=== PATIENT | female | born 1965 | race Caucasian/White ===

== ENCOUNTER 2016-10-24 10:21 | Day surgery (SDC) | payer OTHER ==
[~2016-10-24] VITALS: Ht 180.3 cm; Wt 96.4 kg
[2016-10-24] VITALS (8 sets, daily range): BP systolic 126–141; BP diastolic 70–96; PULSE 70–82; RESP 12–22; O2SAT 94–100
[~2016-10-24 10:21] MED LIST: DIPH25CA6 PO; IBUP200C11 PO; Lactated Ringer's 1,000 ML IV ONE
[2016-10-24] MEDS ORDERED: EPHEDrine/NS 5 mg/mL 5 mL Syringe ONE (10:22)
[2016-10-24] MEDS ORDERED: fentaNYL-PF 50 mCg/mL 2 mL Inj ONE (10:22)
[2016-10-24] MEDS ORDERED: Dexamethasone 4 mg/mL Inj ONE (10:22)
[2016-10-24] MEDS ORDERED: Phenylephrine/NS 100 mCg/mL 10 mL Syringe IVPUSH ONE (10:22)
[2016-10-24] MEDS ORDERED: Rocuronium 10 mg/mL 5 mL Inj ONE (10:22)
[2016-10-24] MEDS ORDERED: MetoCLOpramide 5 mg/mL 2 mL Inj ONE (10:22)
[2016-10-24] MEDS ORDERED: Glycopyrrolate 0.2 MG/ML 1mL Inj ONE (10:22)
[2016-10-24] MEDS ORDERED: Neostigmine 1 mg/mL 10 mL Inj ONE (10:22)
[2016-10-24] MEDS ORDERED: Ondansetron 2 mg/mL 2 mL Inj ONE (10:22)
[2016-10-24] MEDS ORDERED: Propofol 10 mg/mL 20 mL Inj ONE (10:22)
[2016-10-24] MEDS ORDERED: CeFAZolin 2 Gm/50 mL D5W Duplex Bag IV ONE (10:34)
[2016-10-24] MEDS ORDERED: Lactated Ringer's 500 ML IV PRN (11:57)
[2016-10-24] MEDS ORDERED: Lactated Ringer's 1,000 ML IV SCH (11:57)
[2016-10-24] MEDS ORDERED: Labetalol 5 mg/mL 4 mL Inj IV PRN (12:00)
[2016-10-24] MEDS ORDERED: Dexamethasone 4 mg/mL Inj IVPUSH PRN (12:00)
[2016-10-24] MEDS ORDERED: hydrALAZINE 20 mg/mL Inj IVPUSH PRN (12:00)
[2016-10-24] MEDS ORDERED: Phenylephrine 10,000 mCg/mL Inj IVPUSH PRN (12:00)
[2016-10-24] MEDS ORDERED: EPHEDrine Sulfate 50 mg/mL Inj IVPUSH PRN (12:00)
[2016-10-24] MEDS ORDERED: MetoCLOpramide 5 mg/mL 2 mL Inj IVPUSH PRN (12:00)
[2016-10-24] MEDS ORDERED: HYDROmorphone 1 mg/mL Inj IVPUSH PRN (12:00)
[2016-10-24] MEDS ORDERED: fentaNYL-PF 50 mCg/mL 2 mL Inj IVPUSH PRN (12:00)
[2016-10-24] MEDS ORDERED: Ondansetron 2 mg/mL 2 mL Inj IVPUSH PRN (12:00)
[2016-10-24] MEDS ORDERED: Atropine 0.4 mg/mL Inj IVPUSH PRN (12:00)
--- NOTE | 2016-10-24 14:35 | PCM.HPANE ---
Patient Data Date of Service: Oct 24, 2016 Surgeon Admitting Provider: Attending Provider:Sarah Garces MD Primary Care Physician:Pedro Tuttle MD Other Provider:Shannon Payne Anesthesia Reason for Visit Chronic Cholecystitis Ht/WT & BMI Height (Feet): 5 Height (Inches): 11.00 Weight (Kilograms): 96.400 Body Mass Index 29.00 Allergies Coded Allergies: Sulfa (Sulfonamide Antibiotics) (Verified Allergy, Unknown, rash, 10/21/16) Past Anesthesia History Anesthesia History: Denies:: Anesthesia Reactions Diabetes History Hx Diabetes?: No MRSA MRSA: No Medications Hypertension Medication: No Home Meds Incl Beta Susu: No Reported Medications Ibuprofen (Advil)200 Mg [id number] Mg PO PRN For Pain 10/21/16 diphenhydrAMINE HCl (Benadryl)25 Mg [id number] Mg PO Q4 PRN seasonal allergies Ref 0 10/21/16 History History of ENT Problems?: No HEENT History: Denies:: Abnormal Airway Difficult Intubation Denture Type: None Teeth Condition: Within Normal Limits Hx of Heart Problems?: No Cardiovascular History: Denies:: Coronary Artery Disease Hypertension Hx of Respiratory Problem?: No Respiratory History: Denies:: Oxygen Administration Use of C-PAP Machine Hx Neurologic Problems?: No Hx of GI Problems?: Yes Gastrointestinal History: Positive for:: Gall Bladder Disease Hx of Problems?: No Female Hx: Denies:: Currently (hysterectomy) Skin History: Denies:: History Skin Disorders? Pressure Ulcers Hx Musculoskeletal Problems?: No Musculoskeletal History: Denies:: Musculoskeletal Trauma Hx of Psycho/Social Problems?: No Hx Surgeries?: Yes (hysterectomy) Hx Any Other Health Problems?: Yes Other History: Denies:: Cancer Hx Diabetes: No Hx Alcohol Use: YesAlcoholic Drinks Per Day: occasional wineHx Substance Use: NoHave You Smoked inLast 12 mo: No Stop/Bang Treated for Sleep Apnea?: No Do You Have a CPAP Machine?: No S-Snoring: Do You Snore Loudly: No T-Tired: feel tired, fatigued: No O-Obsered: Observed not breath: No P-Blood Pressure: treated: No B- Body Mass Index > 35 kg/m2: No A- Age over 50: Yes N- Neck Large Circumference: No G- Gender Male: No RANI Total Score: 1 RANI Risk Assessment: Low Risk, <3 Yes Risk Assessment Category Category 1A: Patient has history of documented sleep apnea, and HAS NOT received any narcotic, sedative or anesthesia administration during this stay. Category 1B: Patient has history of documented sleep apnea, and HAS received any narcotic , sedative or anesthesia administration during this stay Category 2: Patient has SUSPECTED Obstructive Sleep Apnea, and HAS received any narcotic , sedative or anesthesia administration during this stay. Category 3: Patient has SUSPECTED Obstructive Sleep Apnea and HAS NOT received narcotic, sedative or anesthesia administration during this stay. Category 4: Outpatient in Procedural Areas with known sleep apnea or who screen positive for High Risk via the STOP/BANG questionnaire. Exam Exam Vital Signs Vital Signs Date Time Temp Pulse Resp B/P Pulse Ox O2 Delivery O2 Flow Rate FiO2 10/24/16 10:38 36 77 12 129/77 98 Room Air General Appearance: Alert, Oriented X3, Cooperative HEENT/AIRWAY: MP 2, Neck Movement (Full), Mouth Opening (Wide) Lungs: Clear to Auscultation, Normal Air Movement Heart: Regular Rate/Rhythm, Normal S1, Normal S2 Plan Impression Patient chart reviewed, patient interviewed and anesthestic plan with risks, benefits, and alternatives discussed, and informed consent obtained. ASA Physical Status: ASA2 Mod Systemic Disease Anesthetic Plan: GA Bene/Risks/Altern/Consents: Yes HP Complete Prior to Induction: Yes Garrison Al MD Oct 24, 2016 11:57
[2016-10-24] MEDS ORDERED: Lactated Ringer's 1,000 ML IV ONE ×2 (14:49→16:47)
[2016-10-24] MEDS ORDERED: Bupivacaine 0.5%/EPI 50 mL Inj INJ ONE (15:16)
[2016-10-24] MEDS ORDERED: CeFAZolin 2 Gm/50 mL D5W IV Premix IV ONE (15:28)
[2016-10-24] MEDS ORDERED: oxyCODONE-Acetamin 5-325 mg Tablet PO PRN (16:10)
--- NOTE | 2016-10-24 16:14 | PCM.SURGOP ---
Surgical Operative Report Date of Service: Oct 24, 2016 Pre Operative Diagnosis Chronic cholecystitis Post Operative Diagnosis Chronic cholecystitis Procedure: Laparoscopic cholecystectomy Surgeon and Wool Broker: Surgeon: Sarah Garces MD Assistants: Albert Bah PA-C; Felecia Schreiber MS4 A surgical instrument repair specialist was necessary for dissection and retraction. Indication for Procedure This is a 50-year-old woman who presented to urgent care with severe abdominal pain, and initially was noted to have mild elevation in AST/ALT/alkaline phosphatase. She returned these dropped, but she continued to have mid abdominal pain. An abdominal ultrasound showed diffuse gallbladder wall thickening and numerous echogenic stones. She was consented for laparoscopic cholecystectomy. Findings: 1. Diffuse inflammation of the gallbladder consistent with chronic cholecystitis. 2. Innumerable gallstones within the gallbladder. Procedure Details The patient was brought to the operating room and placed in supine position. General endotracheal anesthesia was smoothly induced. Antibiotics were infused. A warming blanket and SCDs were placed. A foot board was placed. The operative field was prepped and draped in sterile fashion. A pause was performed to confirm the correct patient, procedure, site, and side. A transverse 10 mm incision was made just below the umbilicus. The abdomen was entered under direct vision using a May port. Three additional 5 mm ports were placed in the epigastrium and right upper quadrant. The gallbladder was identified and lifted cephalad. Dissection then proceeded to identify the cystic duct, cystic artery, and to expose the bottom one third of the cystic plate. The cystic artery was composed of 2 tiny branches directly entering the gallbladder, both which were divided with electrocautery. Dissection proceeded such that the lower one third of the cystic plate was exposed, and the cystic duct was seen to be the only structure entering the gallbladder. The cystic duct was then clipped twice on the patient's side and once on the gallbladder side, and was divided. The gallbladder was then removed from its bed on the liver with electrocautery. A small hole was made in the gallbladder during this portion of the dissection as the planes were somewhat obliterated due to inflammation. A few spilled out and were suctioned out of the body. Copious irrigation with suction was performed. Prior to completely removing the gallbladder, a final look was taken at the stump of the cystic artery and cystic duct, and there was no bleeding or bile leak. The gallbladder was then fully removed from the liver and placed in an EndoCatch bag and removed. The three 5 mm ports were removed under direct vision, the 10 mm mid abdominal port was removed, and a [id number] 0 PDS was used to close the fascia. There was no fascial defect at the end of the case. 0.5% Marcaine with epinephrine was infused at all port sites for postoperative analgesia. The skin was closed with subcuticular 4-0 Monocryl. Sterile dressings were placed. The patient was awakened from general anesthesia and taken to the postoperative care unit in good condition. Complications There were no periprocedural complications identified. Surgical Specimen Removed: Yes Specimen sent to Pathology: Yes Surgical Specimen description: Gallbladder Anesthetic Plan: GA Grafts, Implants: None Output, Estimated Blood Loss: 10 (ML) Blood Administration during thompson: No Sarah Garces MD Oct 24, 2016 16:14
--- NOTE | 2016-10-24 16:20 | PCM.ANEP1 ---
Post Anesthesia PACU Phase 1 Assessment Date of Service: Oct 24, 2016 Vital Signs Vital Signs Date Time Temp Pulse Resp B/P Pulse Ox O2 Delivery O2 Flow Rate FiO2 10/24/16 16:17 36.8 82 22 133/82 100 Simple Mask 8 10/24/16 10:38 36 77 12 129/77 98 Room Air Anesthetic Administered: GA Level of Alertness: Awake, talking FIELDS's with Equal Strength: Yes Pain: Yes Pain Scale Score: 4 Nausea or Vomiting: No CV Function & Hydration Stable: Yes Airway Device: Oxygen Delivery: Simple Mask Lungs: Clear to Auscultation, Normal Air Movement PACU Phase 2 Assessment Complications: No Follow up Care: N/A Patient Instructions Provided: N/A Garrison Al MD Oct 24, 2016 16:20
--- NOTE | 2016-10-25 15:23 | PATH ---
SURGICAL PATHOLOGY Attending Physician:Sarah Garces MD CASE STATUS: Signed Out PATIENT NAME: JUSTEN TOLENTINO PID: [id number] : 1965 DATE COLLECTED:10/24/2016 00:00 SPECIMEN: Gallbladder CLINICAL HISTORY: CHRONIC CHOLECYSTITIS 1). GALLBLADDER FINAL DIAGNOSIS: 1.GALLBLADDER: CHOLELITHIASIS WITH ASSOCIATED CHRONIC CHOLECYSTITIS. ICD10 K80.66 GROSS DESCRIPTION: The specimen is received in one formalin filled container labeled with the patient's name, sublabeled "gallbladder" and consists of an opened 9.5 x 3.0 x 2.0 seem gallbladder. The serosa is smooth. The wall is 0.2-0.5 CM in thickness. The mucosa is a dark red-bowser in color. The lumen contains approximately 100+ dark bowser calculi which range in size from less than 0.1-0.6 CM in greatest dimension. 5 business representative sections are submitted one cassette. 10/25/2016 DAC MICRO DESCRIPTION: See diagnosis. ICD-9 CODES: CPT CODES: 1: 64348 Electronically Signed Out Brant Rosales MD [facility] [address], [place] [address] Technical component performed at [facility], [address] [place] [address] Ave[address], [place], [address]
== END 2016-10-24 23:59 | disposition home or self-care (01) ==
LOC: SAS 10:21
PROVIDERS: ATTEND Surgery
DX: K80.10 Calculus of gallbladder with chronic cholecystitis without obstruction (principal); Z90.710 Acquired absence of both cervix and uterus
CPT/HCPCS: 47562; J0690; J1100; J2250; J2370; J2405; J2710; J2765; J3010; J7120